=== PATIENT | female | born 1995 | race Two or more races ===

== ENCOUNTER 2024-01-28 14:34 | Outpatient (CLI) | payer OTHER | END 2024-01-28 14:36 | disposition home or self-care (01) | LOC: PRENATAL 14:34 | PROVIDERS: ATTEND Obstetrics & Gynecology Maternal & Fetal Medicine | DX: O36.80X0 Pregnancy with inconclusive fetal viability, not applicable or unspecified (principal); O28.3 Abnormal ultrasonic finding on antenatal screening of mother; O26.859 Spotting complicating pregnancy, unspecified trimester; Z3A.01 Less than 8 weeks gestation of pregnancy ==

== ENCOUNTER → 2024-04-30 10:30 | Outpatient (CLI) | payer OTHER | END | disposition home or self-care (01) | LOC: PRENATAL 10:30 | PROVIDERS: ATTEND Obstetrics & Gynecology Maternal & Fetal Medicine | DX: O35.9XX0 Maternal care for (suspected) fetal abnormality and damage, unspecified, not applicable or unspecified (principal); O35.3XX0 Maternal care for (suspected) damage to fetus from viral disease in mother, not applicable or unspecified; O44.02 Complete placenta previa NOS or without hemorrhage, second trimester; O99.212 Obesity complicating pregnancy, second trimester; O36.0990 Maternal care for other rhesus isoimmunization, unspecified trimester, not applicable or unspecified; Z3A.20 20 weeks gestation of pregnancy ==

== ENCOUNTER → 2024-06-26 09:20 | Outpatient (CLI) | payer OTHER | END | disposition home or self-care (01) | LOC: PRENATAL 09:20 | PROVIDERS: ATTEND Obstetrics & Gynecology Maternal & Fetal Medicine | DX: O26.849 Uterine size-date discrepancy, unspecified trimester (principal); O36.8199 Decreased fetal movements, unspecified trimester, other fetus; O99.210 Obesity complicating pregnancy, unspecified trimester; O36.1999 Maternal care for other isoimmunization, unspecified trimester, other fetus; Z3A.29 29 weeks gestation of pregnancy ==

== ENCOUNTER 2024-07-06 16:13 | Emergency (ER) | payer OTHER ==
[~2024-07-06] VITALS: Ht 167.6 cm; Wt 111.1 kg
[2024-07-06] MEDS ORDERED: ECOTRIN81 MG PO (17:04)
[2024-07-06] MEDS ORDERED: PRENA1 TRUE CO1 EACH (17:04)
[2024-07-06 20:29] LABS: HEMATOCRIT 37.4 % (36.0-45.00); HEMOGLOBIN 12.6 g/dL (12.0-15.00); MEAN CELL VOLUME 82.5 fL (80.00-100.00); MEAN CORPUSCULAR HEMOGLOBIN 27.8 pg (27.00-32.0); MEAN CORPUSCULAR HGB CONC 33.7 g/dl (32.0-36.0); PLATELET COUNT 209 K/uL (150-450); RED BLOOD COUNT 4.54 M/uL (4.00-6.00); RED CELL DISTRIBUTION WIDTH 13.8 % (11.5-14.5)
[2024-07-06 20:44] LABS: ALBUMIN 2.7 gm/dL (3.4-5.0); BILIRUBIN TOTAL 0.29 mg/dL (0.3-1.2); CALCIUM 8.2 mg/dL (8.5-10.1); CREATININE SERUM 0.55 mg/dL (0.55-1.02); GFR 133.61; GLOBULINA 4.4 G/DL (2.4-3.5); POTASSIUM 3.81 mEq/L (3.5-5.1); TOTAL PROTEIN 7.1 gm/dL (6.4-8.2)
== END 2024-07-06 21:47 | disposition home or self-care (01) ==
LOC: ER 16:15
PROVIDERS: Emergency Medicine
DX: O99.513 Diseases of the respiratory system complicating pregnancy, third trimester (principal); J98.8 Other specified respiratory disorders; B97.89 Other viral agents as the cause of diseases classified elsewhere; Z3A.30 30 weeks gestation of pregnancy; Z20.822 Contact with and (suspected) exposure to COVID-19

== ENCOUNTER 2024-08-07 09:41 | Outpatient (CLI) | payer OTHER ==
[~2024-08-07 09:41] MED LIST: ECOTRIN81 MG PO; PRENA1 TRUE CO1 EACH
== END 2024-08-07 09:42 | disposition home or self-care (01) ==
LOC: PRENATAL 09:41
PROVIDERS: ATTEND Obstetrics & Gynecology Maternal & Fetal Medicine
DX: O26.849 Uterine size-date discrepancy, unspecified trimester (principal); O36.8199 Decreased fetal movements, unspecified trimester, other fetus; O99.210 Obesity complicating pregnancy, unspecified trimester; O36.1999 Maternal care for other isoimmunization, unspecified trimester, other fetus; Z3A.35 35 weeks gestation of pregnancy

== ENCOUNTER 2024-08-19 22:59 | Outpatient (CLI) | payer OTHER ==
[~2024-08-19] VITALS: Ht 167.6 cm; Wt 114.3 kg
[2024-08-19 22:50] VITALS: BP 135/52
[2024-08-19 23:00] VITALS: BP 135/52
[2024-08-19] MEDS ORDERED: RINGERS SOLUTION,LACTATED 1,000 ML IV SCH (23:15)
[2024-08-19 23:20] VITALS: BP 135/67
[2024-08-19 23:43] LABS: URINE APPEARANCE Clear; URINE BILIRRUBIN Negative (NEGATIVE); URINE BLOOD Moderate; URINE COLOR Yellow; URINE GLUCOSE Negative (NEGATIVE); URINE KETONE Trace (NEGATIVE); URINE LEUKOCYTE Negative; URINE NITRATE Negative; URINE PROTEIN Trace (NEGATIVE)
[2024-08-19 23:46] LABS: URINE BACTERIA 740.7 uL (0.0-1933); URINE EPITHELIAL CELLS 37.8 uL (0.0-38.8); URINE RBC 6.2 uL (0.0-20.8); URINE WBC 14.5 uL (0.0-23.2)
[2024-08-19 23:47] LABS: HEMATOCRIT 36.7 % (36.0-45.00); HEMOGLOBIN 12.6 g/dL (12.0-15.00); MEAN CELL VOLUME 81.2 fL (80.00-100.00); MEAN CORPUSCULAR HEMOGLOBIN 27.9 pg (27.00-32.0); MEAN CORPUSCULAR HGB CONC 34.3 g/dl (32.0-36.0); PLATELET COUNT 169 K/uL (150-450); RED BLOOD COUNT 4.52 M/uL (4.00-6.00)
[2024-08-20 00:18] LABS: URINE CAST 0.15 uL (0.0-1.40)
[2024-08-20 00:19] LABS: URINE CRYSTALS FEW /HPF
[2024-08-20 03:09] VITALS: BP 126/73
[2024-08-20 08:22] VITALS: BP 128/72
[2024-08-20 16:45] VITALS: BP 124/76
== END 2024-08-20 16:45 | disposition home or self-care (01) ==
LOC: OBS/DEL 22:59
PROVIDERS: Specialist; ATTEND Student in an Organized Health Care Education/Training Program
DX: O46.8X3 Other antepartum hemorrhage, third trimester (principal); O26.849 Uterine size-date discrepancy, unspecified trimester; O36.8199 Decreased fetal movements, unspecified trimester, other fetus; O26.859 Spotting complicating pregnancy, unspecified trimester; Z3A.36 36 weeks gestation of pregnancy

== ENCOUNTER 2024-08-28 14:30 | Inpatient (IN) | payer OTHER ==
[~2024-08-28] VITALS: Ht 167.6 cm; Wt 115.7 kg
[2024-08-28 15:57] LABS: HEMATOCRIT 38.9 % (36.0-45.00); HEMOGLOBIN 13.5 g/dL (12.0-15.00); MEAN CELL VOLUME 80.7 fL (80.00-100.00); MEAN CORPUSCULAR HGB CONC 34.7 g/dl (32.0-36.0); PLATELET COUNT 158 K/uL (150-450); RED BLOOD COUNT 4.82 M/uL (4.00-6.00)
[2024-08-28 15:58] LABS: PH,URINE 5.5 (5.0-8.0); URINE APPEARANCE Clear; URINE BILIRRUBIN Negative (NEGATIVE); URINE BLOOD Negative; URINE COLOR Yellow; URINE GLUCOSE Negative (NEGATIVE); URINE KETONE Trace (NEGATIVE); URINE LEUKOCYTE Small; URINE NITRATE Negative; URINE PROTEIN Negative (NEGATIVE)
[2024-08-28 16:04] LABS: URINE BACTERIA 1951.4 uL (0.0-1933); URINE EPITHELIAL CELLS 76.1 uL (0.0-38.8); URINE RBC 5.8 uL (0.0-20.8); URINE WBC 70.4 uL (0.0-23.2)
[2024-08-28 16:10] LABS: URINE CAST 0.61 uL (0.0-1.40)
[2024-08-28 16:11] LABS: INR < 0.93; PROTHROMBIN TIME 10.1 SECONDS (9.0-11.5)
[2024-08-28 16:29] LABS: ALBUMIN 2.7 gm/dL (3.4-5.0); BILIRUBIN TOTAL 0.29 mg/dL (0.3-1.2); CALCIUM 8.9 mg/dL (8.5-10.1); CREATININE SERUM 0.46 mg/dL (0.55-1.02); GFR 162.95; GLOBULINA 3.6 G/DL (2.4-3.5); POTASSIUM 4.1 mEq/L (3.5-5.1); TOTAL PROTEIN 6.3 gm/dL (6.4-8.2)
[2024-09-05 19:10] VITALS: BP 141/69
[2024-09-05] MEDS ORDERED: ECOTRIN81 MG PO (19:23)
[2024-09-05] MEDS ORDERED: MISOPROSTOL 25 MCG/4 ML GEL.W.APPL VAG ONE (23:15)
[2024-09-05] MEDS ORDERED: OXYTOCIN 500 ML IV SCH (23:45)
[2024-09-06] VITALS (7 sets, daily range): BP systolic 118–137; BP diastolic 65–85
[2024-09-06] MEDS ORDERED: LIDOCAINE HCL 1% 10ML VIAL IJ ONE (05:45)
[2024-09-06] MEDS ORDERED: CHLORHEXIDINE GLUCONATE 120 ML BOTTLE TOP ONE (05:45)
[2024-09-06] MEDS ORDERED: OXYTOCIN 1,000 ML IV SCH ×2 (05:45→07:15)
[2024-09-06] MEDS ORDERED: ERYTHROMYCIN BASE OPHT 1GM EACH TUBE OP ONE (05:45)
[2024-09-06] MEDS ORDERED: ACETAMINOPHEN 500 MG GEL..CAP PO PRN (06:30)
[2024-09-06] MEDS ORDERED: BENZOCAINE/MENTHOL 90 ML BOTTLE TOP PRN (06:30)
[2024-09-06] MEDS ORDERED: PNV,CALCIUM 72/IRON/FOLIC ACID 1 TAB TABLET PO SCH (09:00)
[2024-09-06 16:28] LABS: HEMATOCRIT 30.5 % (36.0-45.00); HEMOGLOBIN 10.6 g/dL (12.0-15.00); MEAN CELL VOLUME 81.4 fL (80.00-100.00); MEAN CORPUSCULAR HEMOGLOBIN 28.2 pg (27.00-32.0); MEAN CORPUSCULAR HGB CONC 34.6 g/dl (32.0-36.0); PLATELET COUNT 136 K/uL (150-450); RED BLOOD COUNT 3.75 M/uL (4.00-6.00); RED CELL DISTRIBUTION WIDTH 15.1 % (11.5-14.5)
[2024-09-07 00:20] VITALS: BP 124/75
[2024-09-07 08:00] VITALS: BP 121/70
[2024-09-07] MEDS ORDERED: LORATADINE/PSEUDOEPHEDRINE 1 TAB TAB.SR.24H PO SCH (09:02)
[2024-09-07] MEDS ORDERED: FLUTICASONE PROPIONATE 50 MCG SPRAY NASAL SCH (09:15)
[2024-09-07 15:58] VITALS: BP 123/76
[2024-09-08 01:34] VITALS: BP 122/55
[2024-09-08 08:08] VITALS: BP 115/60
== END 2024-09-08 12:48 | disposition home or self-care (01) | DRG 807 ==
LOC: LDR 09-05 19:12 → OB/GYN 09-05 19:46 → LDR 09-05 23:11 → OB/GYN 09-06 05:09 → LDR 09-11 14:30
PROVIDERS: Student in an Organized Health Care Education/Training Program; ADMIT Obstetrics & Gynecology; ATTEND Obstetrics & Gynecology
PROC: 3E0P7VZ Introduction of Hormone into Female Reproductive, Via Natural or Artificial Opening (ICD-10-PCS; 2024-09-05)
PROC: 4A1HXCZ Monitoring of Products of Conception, Cardiac Rate, External Approach (ICD-10-PCS; 2024-09-05)
PROC: 10E0XZZ Delivery of Products of Conception, External Approach (ICD-10-PCS; principal; 2024-09-06)
PROC: 0HQ9XZZ Repair Perineum Skin, External Approach (ICD-10-PCS; 2024-09-06)
PROC: 3E033VJ Introduction of Other Hormone into Peripheral Vein, Percutaneous Approach (ICD-10-PCS; 2024-09-06)
DX: O70.0 First degree perineal laceration during delivery (principal); Z37.0 Single live birth; Z3A.39 39 weeks gestation of pregnancy; Z20.822 Contact with and (suspected) exposure to COVID-19